=== PATIENT | female | born 1955 | race Caucasian/White ===

== ENCOUNTER 2021-05-18 15:01 | Emergency (ER) | payer OTHER ==
[2021-05-18 18:20] LABS: BASOPHIL 0.7 % (0-2); EOSINOPHIL 1.6 % (0-7); HCT 42.5 % (37.0-47.0); LYMPHOCYTE 24.6 % (15-48); MCH 28.4 pg (25.0-31.0); MCHC 32.9 g/dL (32.0-36.0); MCV 86.2 fL (78.0-100.0); MONOCYTE 11.5 % (0-12); MPV 10.2 fL (6.0-9.5); NEUTROPHIL 61.4 % (41-80); NRBC 0; PLT 226 K/uL (150-400); RBC 4.93 M/uL (4.20-5.40); RDW 12.1 % (11.5-14.0); WBC 9.2 K/uL (4.0-10.5)
[2021-05-18 18:35] LABS: BUN/CREAT RATIO (CALC) 26.7 RATIO; CREATININE 0.86 mg/dL (0.51-0.95); POTASSIUM 3.5 mmol/L (3.5-5.1)
== END 2021-05-18 21:24 | disposition home or self-care (01) ==
LOC: FER 15:01
PROVIDERS: Nurse Practitioner Family
DX: R60.0 Localized edema (principal); R06.02 Shortness of breath; E11.9 Type 2 diabetes mellitus without complications; I10 Essential (primary) hypertension; Z79.84 Long term (current) use of oral hypoglycemic drugs
CPT/HCPCS: 36415; 71275; 80048; 83036; 83880; 85025; 85379; 93971; J7030; Q9967

== ENCOUNTER → 2021-07-13 | Day surgery (SDC) | payer OTHER ==
[~2021-07-13] VITALS: Ht 162.6 cm; Wt 112.0 kg
[~2021-07-13] MED LIST: CLARITIN10 MG PO; HCTZ25 MG PO; METFORMIN HCL500 M3 PO; NORCO 5-325 TA1 EACH PO; ONDANSETRON ODT8 MG PO
[2021-07-13 08:28] LABS: HCT 41.3 % (37.0-47.0); HGB 13.6 g/dl (12.5-16.0); MCH 28.9 pg (25.0-31.0); MCHC 32.9 g/dL (32.0-36.0); MCV 87.7 fL (78.0-100.0); MPV 10.8 fL (6.0-9.5); RBC 4.71 M/uL (4.20-5.40); RDW 12.4 % (11.5-14.0); WBC 5.1 K/uL (4.0-10.5)
[2021-07-13 08:42] LABS: ALBUMIN 3.6 g/dL (3.4-5.0); BILIRUBIN - TOTAL 0.4 mg/dL (0.2-1.0); BUN/CREAT RATIO (CALC) 25.7 RATIO; CREATININE 0.74 mg/dL (0.51-0.95); GLOBULIN (CALCULATION) 3.5 g/dL; POTASSIUM 4.2 mmol/L (3.5-5.1); TOTAL PROTEIN 7.1 g/dL (6.4-8.2)
== END | disposition home or self-care (01) ==
LOC: FAS 07:41
PROVIDERS: Surgery
DX: K80.12 Calculus of gallbladder with acute and chronic cholecystitis without obstruction (principal); E66.01 Morbid (severe) obesity due to excess calories; K76.0 Fatty (change of) liver, not elsewhere classified; K66.0 Peritoneal adhesions (postprocedural) (postinfection); E11.9 Type 2 diabetes mellitus without complications; Z87.891 Personal history of nicotine dependence
CPT/HCPCS: 36415; 80053; C1758; J2250; J2405; J2704; J2710; J3010; J7120; Q9967